=== PATIENT | female | born 1950 | race Hispanic/Latino ===

== ENCOUNTER 2018-03-04 18:41 | Emergency (ER) | payer MEDICARE, MEDICAID ==
[2018-03-04 18:57] VITALS: RESP 18
--- NOTE | 2018-03-04 20:05 | ED PDOC ---
HPI: Seizure Time Seen by Provider: 03/04/18 19:13 Chief Complaint (Nursing): Seizure Chief Complaint (Provider): Seizure History Per: Patient Additional Complaint(s): Pt is a 67 yo female, PMH of HTN, "mini" seizures, presents for feeling weak, having some "balance issues" walking, and an overall feeling of "a possible seizure coming on." Pt reports she has been having "mini" seizures lately but never went into "full " seizures. Pt notes her mini seizures are numbness to the left side of her face, and tingling in her fingers which she can usually control with "hand exercises." Past Medical History Reviewed: Nursing Documentation, Vital Signs Vital Signs: Last Vital Signs Temp 98 F 03/04/18 18:52 Pulse 80 03/04/18 18:52 Resp 18 03/04/18 18:52 BP 128/79 03/04/18 18:52 Pulse Ox 99 03/04/18 18:52 - Medical History PMH: HTN - Surgical History Surgical History: No Surg Hx - Family History Family History: States: No Known Family Hx - Living Arrangements Living Arrangements: With Family - Social History Current smoker - smoking cessation education provided: No Alcohol: None Drugs: Denies - Immunization History Hx Tetanus Toxoid Vaccination: Yes - Allergies Allergies/Adverse Reactions: Allergies Allergy/AdvReac Type Severity Reaction Status Date / Time phenytoin [From Dilantin] Allergy RASH Verified 03/04/18 19:05 Review of Systems ROS Statement: Except As Marked, All Systems Reviewed And Found Negative Neurological: Positive for: Seizures Physical Exam - Reviewed Nursing Documentation Reviewed: Yes Vital Signs Reviewed: Yes - Physical Exam Appears: Positive for: Well, Non-toxic, No Acute Distress Head Exam: Positive for: ATRAUMATIC, NORMAL INSPECTION, NORMOCEPHALIC Skin: Positive for: Normal Color, Warm, DRY Eye Exam: Positive for: EOMI, Normal appearance, PERRL ENT: Positive for: Normal ENT Inspection Neck: Positive for: Normal, Painless ROM Cardiovascular/Chest: Positive for: Regular Rate, Rhythm Respiratory: Positive for: CNT, Normal Breath Sounds Gastrointestinal/Abdominal: Positive for: Normal Exam, Soft Back: Positive for: Normal Inspection Extremity: Positive for: Normal ROM Neurologic/Psych: Positive for: Alert, Oriented - ECG O2 Sat by Pulse Oximetry: 99 Medical Decision Making Medical Decision Making: IV access established and diagnostics ordered. Case endorsed to CLARA Frederick at 2000 pending diagnostic review and re-eval Disposition - Clinical Impression Clinical Impression: Weakness - Patient ED Disposition Is Patient to be Admitted: Transfer of Care - Disposition Disposition: Transfer of Care Disposition Time: 20:07 Condition: STABLE Instructions: Weakness (ED)
[2018-03-04 21:05] LABS: BASO % 0.4 % (0.0-2.0); EOS # 0.2 K/uL (0.0-0.7); EOS % 2.6 % (0.0-4.0); HEMOGLOBIN 13.2 g/dL (12.0-16.0); LYMPH # 2.8 K/uL (1.0-4.3); LYMPH % 39.9 % (20.0-40.0); MEAN CELL VOLUME 89.6 fl (81.0-99.0); MEAN CORPUSCULAR HEMOGLOBIN 30.8 pg (27.0-31.0); MEAN CORPUSCULAR HGB CONC 34.4 g/dL (33.0-37.0); MEAN PLATELET VOLUME 7.4 fl (7.2-11.7); MONO # 0.7 K/uL (0.0-0.8); MONO % 9.9 % (0.0-10.0); NEUT # 3.3 K/uL (1.8-7.0); NEUT % 47.2 % (50.0-75.0); NRBC % 0.1 % (0.0-0.0); RBC 4.27 Mil/uL (3.80-5.20); RED CELL DISTRIBUTION WIDTH 12.6 % (11.5-14.5)
[2018-03-04 21:15] LABS: ALB/GLOB RATIO 1.4 (1.0-2.1); ALBUMIN 4.3 g/dL (3.5-5.0); ALT/SGPT 31 U/L (9-52); AST/SGOT 26 U/L (14-36); BLOOD UREA NITROGEN 15 mg/dl (7-17); CALCIUM 9.7 mg/dL (8.4-10.2); GFR NON-AFRICAN AMERICAN > 60
[2018-03-04 23:23] LABS: URINE BILIRUBIN NEGATIVE (NEGATIVE); URINE BLOOD NEGATIVE (NEGATIVE); URINE CLARITY CLEAR (Clear); URINE COLOR YELLOW (YELLOW); URINE GLUCOSE (UA) NEG (Normal); URINE LEUKOCYTE ESTERASE SMALL Leu/uL (Negative); URINE PROTEIN NEGATIVE (NEGATIVE); URINE UROBILINOGEN 0.2-1.0 mg/dL (0.2-1.0)
--- NOTE | 2018-03-05 00:14 | ED PDOC ---
- Laboratory Results Result Diagrams: 03/04/18 20:52 03/04/18 20:52 - ECG O2 Sat by Pulse Oximetry: 99 Medical Decision Making Medical Decision Making: Case endorsed to me from GAIL Rizo at [address], observation in the ER and re-evaluation. Labs reviewed and wnl. CT head : FINDINGS: Brain: Area of old right middle cerebral artery infarct extending into the anterior watershed and across the inferior aspect of the right frontal lobe. There is minimal patchy low attenuation of deep white matter. There is slight prominence of the peripheral sulci. Ventricles: There is mild prominence of the central ventricular system. Bones/joints: Normal. No acute fracture. Sinuses: Normal as visualized. No acute sinusitis. Mastoid air cells: Normal as visualized. No mastoid effusion. Soft tissues: Normal. IMPRESSION: 1. Minimal chronic ischemic white matter change mild atrophy. 2. Encephalomalacia involving the inferior right frontal lobe and portions of the anterior right temporal lobe and lateral right parietal lobe which may be posttraumatic. 3. Otherwise negative noncontrast head CT. Dictated and Authenticated by: Epi Simmons MD 0000 On re-evaluation, patient reports having 1 mini seizure while in the ER. On further questioning, patient reports she is on keppra 750 mg 2 po bid and carbamezapine 200 mg po tid, which she missed taking both medications x2 days as she forgot them in [facility] where she was staying for a few days. She states she has someone who is returning to [place] tomorrow AM to retrieve her medications for her. She states when she takes both medications her seizures are well controlled and only has a few episodes of mini seizures a month. Denies any headache, dizziness, chest pain, SOB. On exam, patient remains AAOx3 , in no acute distress. Lungs clear to auscultation, cardiac RRR, abdomen soft, non-tender, repeat neuro exam shows no focal findings. Diagnostic results d/w the patient in great detail. Patient given keppra PO and carbamezapine PO. 0100 EKG : NSR at 61 bpm, +T wave depressions in leads V3-V5, as read by GAIL. Today's EKG was compared to her last EKG on 06/07/2014, which reveals that these are new changed. Lab called and troponin added. 0200 Troponin (-). Patient still denies any dizziness, CP, SOB, and has no other complaints. VS T 98 P 72 BP 132/80 O2sat 100%RA R 18. Based on history, exam and diagnostic results, plan will be for outpatient follow up. Patient instructed to follow-up with her pmd regarding her ekg and neurologist Dr. Simi Bueno in 1-2 days without fail. Advised to resume her anti-sezire medications in the AM. Return to the emergency room at any time for any new or worsening symptoms. Patient states she fully agrees with and understands discharge instructions. States that she agrees with the plan and disposition. Verbalized and repeated discharge instructions and plan. I have given the patient opportunity to ask any additional questions. Disposition - Clinical Impression Clinical Impression: Weakness, Seizure disorder - POA Present On Arrival: None - Disposition Disposition: Routine/Home Disposition Time: 02:00 Condition: STABLE Additional Instructions: Thank you for letting us take care of you today. You were treated for weakness and seizure. The emergency medical care you received today was directed towards the acute presenting symptoms. Resume taking your anti-seizure medication. Return to the Emergency Department at any time if symptoms worsen, do not improve, or if any other problems arise. Please contact your neurologist doctor in 2 days for re-evaluation and follow up. Bring any paperwork you were given at discharge with you along with any medications to your follow up visit. Our treatment cannot replace ongoing medical care by a primary care provider (PCP) outside of the emergency department. Thank you for allowing the [facility] team to be part of your care today. Instructions: Seizures, Adult (DC), Weakness (ED) Forms: [employer] (Greek) - PA / PARTS SPECIALIST / Resident Statement MD/DO has reviewed & agrees with the documentation as recorded.
[2018-03-05 02:34] VITALS: BP 132/80; PULSE 72; TEMP 98.4
[2018-03-05 03:25] VITALS: O2SAT 99
--- NOTE | 2018-03-05 07:53 | RAD ---
Date of service: 03/04/2018 PROCEDURE: CHEST RADIOGRAPH, 1 VIEW HISTORY: med screening COMPARISON: Chest radiographs 03/28/2013. FINDINGS: LUNGS: No acute pulmonary disease appreciated bilaterally. PLEURA: No pneumothorax or pleural fluid seen. CARDIOVASCULAR: Normal. OSSEOUS STRUCTURES: No significant abnormalities. VISUALIZED UPPER ABDOMEN: Normal. OTHER FINDINGS: None. IMPRESSION: No interval acute cardiopulmonary disease appreciated.
--- NOTE | 2018-03-05 10:29 | CT ---
Date of service: 03/04/2018 PROCEDURE: CT HEAD WITHOUT CONTRAST. HISTORY: dizzy, loss of balance COMPARISON: Head CT without contrast 06/08/2014. TECHNIQUE: Axial computed tomography images were obtained through the head/brain without intravenous contrast. Radiation dose: Total exam DLP = 753.91 mGy-cm. This CT exam was performed using one or more of the following dose reduction techniques: Automated exposure control, adjustment of the mA and/or kV according to patient size, and/or use of iterative reconstruction technique. FINDINGS: HEMORRHAGE: No intracranial hemorrhage. BRAIN: A large area cystic encephalomalacia is identified at the mid to inferior right middle cerebral artery distribution compatible with chronic infarct, stable in appearance in the interval. No positive mass effect above or below the tentorium and mild diffuse cerebral atrophy and chronic microangiopathy are reiterated throughout the remaining cerebrum. No suspicious extra-axial collection. No midline brain abnormality appreciable grossly. VENTRICLES: Unremarkable. No hydrocephalus. CALVARIUM: Unremarkable. PARANASAL SINUSES: Unremarkable as visualized. No significant inflammatory changes. MASTOID AIR CELLS: Unremarkable as visualized. No inflammatory changes. OTHER FINDINGS: None. IMPRESSION: Chronic large right MCA infarct reiterated as well as limited age-related neuro degenerative findings. No definite acute intracranial findings by standard CT criteria. Follow-up CT or MRI are available as indicated. Concordant preliminary report from [facility], 03/04/2018.
--- NOTE | 2018-03-05 17:45 | CARD ---
APPROVED REPORT Date of service: 03/04/2018 EKG Measurement Heart [id number] <Conclusion> Normal sinus rhythm Cannot rule out Inferior infarct, age undetermined Anterior infarct, age undetermined ST & T wave abnormality, consider lateral ischemia Abnormal ECG
== END 2018-03-05 02:10 | disposition home or self-care (01) ==
LOC: H.ER 18:41
DX: G40.909 Epilepsy, unspecified, not intractable, without status epilepticus (principal); R53.1 Weakness; I10 Essential (primary) hypertension

== ENCOUNTER 2018-03-09 14:17 | Observation (INO) | payer MEDICARE, MEDICAID ==
[2018-03-09 14:26] VITALS: BMI 28.3
[2018-03-09] MEDS ORDERED: Lidocaine 1% Inj (20ml) IJ ONE (14:44)
[2018-03-09] MEDS ORDERED: Tdap Vaccine 0.5 ml Vial (10-64 yrs) IM ONE ×2 (14:45→14:53)
[2018-03-09] MEDS ORDERED: Lidocaine 1% w Epi 1:100,000 Inj ONE (14:49)
--- NOTE | 2018-03-09 15:03 | ED PDOC ---
HPI: Trauma/Fall - HPI Time Seen by Provider: 03/09/18 14:37 Chief Complaint (Nursing): Trauma Chief Complaint (Provider): Trauma History Per: Patient History/Exam Limitations: no limitations Onset/Duration Of Symptoms: Mins (prior to arrival) Additional Complaint(s): 67 year old female presents to the ED for evaluation of a lip laceration and nasal injury s/p falling. Patient states that prior to arrival, she tripped while walking into a [employer], causing her to strike her face against the ground. She reports having left sided epistaxis initially, which has since resolved, along with nasal pain, and a frontal headache described as a a dull pressure feeling. Patient denies taking anticoagulants or taking medications before arriving. Of note, patient was recently evaluated in the ED for dizziness , but had an unremarkable workup, and subsequently denies any dizziness at the time of the fall. Otherwise, (-) other complaints, (-) chest pain, (-) shortness of breath, (-) abdominal pain, (-) nausea, (-) vomiting, (-) loss of consciousness (-) visual changes. Tetanus not up to date. PMD: Sunshine Coleman Past Medical History Reviewed: Historical Data, Nursing Documentation, Vital Signs Vital Signs: Last Vital Signs Temp 98.4 F 03/09/18 14:25 Pulse 77 03/09/18 14:25 Resp 16 03/09/18 14:25 BP 136/89 03/09/18 14:25 Pulse Ox 95 03/09/18 14:25 - Medical History PMH: HTN, Chronic Pain (knees) Other PMH: thyroid condition - Surgical History Surgical History: No Surg Hx - Family History Family History: States: Unknown Family Hx - Social History Current smoker - smoking cessation education provided: No Alcohol: None Drugs: Denies - Home Medications Home Medications: Ambulatory Orders Medication Instructions Recorded Alendronate [Fosamax] 70 mg PO WE 03/09/18 Aspirin [Ecotrin] 81 mg PO DAILY 03/09/18 Carbamazepine [Carbatrol] 200 mg PO Q8 03/09/18 Levetiracetam [Keppra] 1,500 mg PO Q12 03/09/18 Levothyroxine [Synthroid] 88 mcg PO DAILY 03/09/18 Pravastatin Sodium [Pravachol] 40 mg PO HS 03/09/18 - Allergies Allergies/Adverse Reactions: Allergies Allergy/AdvReac Type Severity Reaction Status Date / Time phenytoin [From Dilantin] Allergy RASH Verified 03/09/18 14:24 Review of Systems ROS Statement: Except As Marked, All Systems Reviewed And Found Negative ENT: Positive for: Nose Pain (mild), Mouth Pain (lip laceration), 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 Negative for: Dizziness, Other (loss of consciousness) Physical Exam - Reviewed Nursing Documentation Reviewed: Yes Vital Signs Reviewed: Yes - Physical Exam Comments: GENERAL APPEARANCE: Patient is awake, alert, oriented x 3, in no acute distress. Resting comfortably. SKIN: Warm, dry; (-) cyanosis. HEAD: (-) swelling and tenderness, with no palpable bony defect. EYES: PERRL. (-) conjunctival pallor, (-) scleral icterus, (-) nystagmus. (-) periorbital tenderness or edema. ENMT: Mucous membranes moist. Nose: (+) Mild nasal tenderness with a faint 2mm abrasion to nasal bridge, (+) mild swelling, (-) ecchymosis. Pharynx clear, uvula midline. Airway patent: (-) stridor. Full ROM of mandible without pain, dentition intact and nontender. Right upper lip: .75cm linear, superficial laceration through jamil border with central puncture wound, (+) active bleeding, (+) mild surrounding ecchymosis. Interior, midline upper lip: (+) 1cm gaping laceration (-) active bleeding (+) mild surrounding ecchymosis NECK: Supple, FROM (-) paracervical tenderness, (-) vertebral tenderness, (-) lymphadenopathy. CHEST AND RESPIRATORY: (-) chest wall tenderness. Lungs: (-) rales, (-) rhonchi , (-) wheezes; breath sounds equal bilaterally. Respirations even and nonlabored , speaking in full sentences. HEART AND CARDIOVASCULAR: (-) irregularity; (-) murmur ABDOMEN AND GI: Soft; (-) tenderness (-) guarding (-) rebound. BACK: (-) midline tenderness. EXTREMITIES: (-) deformity NEURO AND PSYCH: GCS=15. Mental status as above. Has full memory of episode; rn hemo dialysis : Pupils equal & reactive . EOMs intact and painless. (-) facial asymmetry. Tongue and uvula midline. Strength 5/5 in all extremities. No gross sensory deficits. Gait steady. - Laboratory Results Result Diagrams: 03/09/18 16:26 03/09/18 16:26 - ECG O2 Sat by Pulse Oximetry: 95 (RA) Pulse Ox Interpretation: Normal Medical Decision Making Medical Decision Making: Time: 1444 Initial Impression: Closed head injury, lip laceration, nasal contusion s/p fall Initial Plan: --CT head w/o contrast --CT maxillofacial w/o contrast --Tetanus IM --Lido 1% with epi for laceration repair --Tylenol 650 mg PO 1505 Laceration repair performed by Jayesh ELIZABETH. Patient tolerated procedure well. See procedure notes. [address] Head FINDINGS: HEMORRHAGE: Trace subarachnoid hemorrhage is seen at the right frontal vertex medially abutting the falx. Small subdural hematoma not completely excluded but not favored. No additional intracranial hemorrhage appreciable. BRAIN: Reiteration of large right MCA chronic infarct. Corticomedullary differentiation remains good throughout. Proportional, diffuse cerebral atrophy and chronic microangiopathy are reiterated. No interval mass effect is identified or suspicious extra-axial fluid collection in the midline brain and appears diffusely unremarkable nevertheless. Posterior fossa contents remain unremarkable including the brainstem. VENTRICLES: Unremarkable. No hydrocephalus. CALVARIUM: No destructive bony lesion or displaced fracture identified including through the skullbase. PARANASAL SINUSES: Unremarkable as visualized. No significant inflammatory changes. MASTOID AIR CELLS: Unremarkable as visualized. No inflammatory changes. OTHER FINDINGS: None. IMPRESSION: Trace subarachnoid hemorrhage is seen acutely at the medial right frontal vertex. Trace adjacent subdural hematoma not favored but not completely excluded. Exam is otherwise unchanged including large right MCA chronic infarct an age related neuro degenerative findings. No displaced fracture identified. CT maxillofacial FINDINGS: NASAL BONES: Rightward bony nasal septal deviation. No fracture identified. ORBITS: No fracture identified. Oral contents appear intact grossly. PARANASAL SINUSES/ MASTOIDS: Clear. MAXILLA: Unremarkable. MANDIBLE/ TEMPOROMANDIBULAR JOINTS: Unremarkable. SKULL BASE: Unremarkable. TEMPORAL BONES: Middle ears and mastoid grossly unremarkable. OTHER FINDINGS: None. IMPRESSION: No fracture identified throughout the facial bones. Rightward bony nasal septal deviation is identified. IV access, CMP, CBC with differential, PT, and PTT ordered secondary to CT findings. 1605 Case discussed with ED physician Malcolm who recommends neurosurgery consult and admission. Consult placed to neurosurgery. 164 Spoke to neurosurgery senior science consultant, Dr. Whalen, who recommends repeat CT in 4-6 hours. Consult placed to family practice resident for admission. Will go under observation on telemetry. Repeat CT ordered for 9pm. 164 Repeat O2: 97% on RA Spoke to family practice resident Stacy Green who is agreeable to admission. Will see patient in ED. CBC, CMP, and coags unremarkable. On re-evaluation, patient offers no additional complaints. Patient remains AAOx3 , in no acute distress. On exam, neck is supple, lungs CTA, cardiac RRR, abdomen is soft and non-tender, neuro exam shows no focal findings. Diagnostic results d/w the patient in great detail. Dx of lip laceration, head injury, subarachnoid hemorrhage s/p fall d/w the patient. Based on history, exam and diagnostic results plan will be for obs admission. Scribe Attestation: Documented by Pearl De La Cruz, acting as a scribe for Alena Mcconnell PA-C. Provider Scribe Attestation: All medical record entries made by the Scribe were at my direction and personally dictated by me. I have reviewed the chart and agree that the record accurately reflects my personal performance of the history, physical exam, medical decision making, and the department course for this patient. I have also personally directed, reviewed, and agree with the discharge instructions and disposition. Procedures - Time-Out Type of Procedure: Suture Site of Procedure: Lip Correct Patient (with visual ID + MR# on ID Band): Yes Correct Procedure: Yes Correct Site Marked: Yes Medication Reconciliation / Bloodwork / Allergies Checked: Yes PA/Tech: Alena Mcconnell PA-C - Laceration/Wound Repair Right Upper Lip Wound Length (cm): 0.75 Wound's Depth, Shape: superficial Wound Explored: no foreign body removed Irrigated w/ Saline (ccs): 100 Anesthesia: Lidocaine w/ Epi Volume Anesthetic (ccs): 1 Wound Repaired With: Sutures Suture Size/Type: 6:0 (monocryl) Number of Sutures: 1 Layer Closure?: No Wound Complexity: Simple Sterile Dressing Applied?: Yes Progress: Patient tolerated procedure well. Bacitracin and band-aid applied. Patient educated on further wound care. All questions answered at this time. Interior Upper Lip Wound Length (cm): 1 Wound Explored: no foreign body removed Irrigated w/ Saline (ccs): 100 Anesthesia: Lidocaine w/ Epi Volume Anesthetic (ccs): 1 Wound Debrided: minimal Wound Repaired With: Sutures Suture Size/Type: 6:0 (monocryl) Number of Sutures: 4 Layer Closure?: No Wound Complexity: Simple Sterile Dressing Applied?: Yes Progress: Patient tolerated procedure well and was educated on further wound care. Salt water gargles encouraged. Disposition - Clinical Impression Clinical Impression: Lip laceration, Nasal contusion, Subarachnoid hemorrhage - Patient ED Disposition Is Patient to be Admitted: Yes Counseled Patient/Family Regarding: Studies Performed, Diagnosis - Disposition Disposition Time: 16:49 Condition: STABLE - Pt Status Changed To: Hospital Disposition Of: Observation - POA Present On Arrival: Falls Or Trauma Results - Lab Results Lab Results: 03/09/18 03/09/18 03/09/18 16:26 16:26 16:26 WBC 9.1 RBC 4.54 Hgb 14.0 Hct 40.9 MCV 89.9 MCH 30.9 MCHC 34.3 RDW 12.9 Plt Count 221 MPV 7.5 Neut % (Auto) 69.3 Lymph % (Auto) 22.4 [place] % (Auto) 6.9 Eos % (Auto) 1.0 Baso % (Auto) 0.4 Neut # (Auto) 6.3 Lymph # (Auto) 2.0 [place] # (Auto) 0.6 Eos # (Auto) 0.1 Baso # (Auto) 0.0 PT 12.0 INR 1.1 APTT 33.0 Sodium 138 Potassium 3.4 L Chloride 101 Carbon Dioxide 29 Anion Gap 11 BUN 8 Creatinine 0.6 L Est GFR ( Amer) > 60 Est GFR (Non-Af Amer) > 60 Random Glucose 100 Calcium 9.3 Total Bilirubin 0.6 AST 21 ALT 30 Alkaline Phosphatase 79 Total Protein 7.4 Albumin 4.3 Globulin 3.1 Albumin/Globulin Ratio 1.4
--- NOTE | 2018-03-09 16:01 | CT ---
Date of service: 03/09/2018 PROCEDURE: CT HEAD WITHOUT CONTRAST. HISTORY: s/p fall COMPARISON: Noncontrast head CT 03/04/2018. TECHNIQUE: Axial computed tomography images were obtained through the head/brain without intravenous contrast. Radiation dose: Total exam DLP = 741.16 mGy-cm. This CT exam was performed using one or more of the following dose reduction techniques: Automated exposure control, adjustment of the mA and/or kV according to patient size, and/or use of iterative reconstruction technique. FINDINGS: HEMORRHAGE: Trace subarachnoid hemorrhage is seen at the right frontal vertex medially abutting the falx. Small subdural hematoma not completely excluded but not favored. No additional intracranial hemorrhage appreciable. BRAIN: Reiteration of large right MCA chronic infarct. Corticomedullary differentiation remains good throughout. Proportional, diffuse cerebral atrophy and chronic microangiopathy are reiterated. No interval mass effect is identified or suspicious extra-axial fluid collection in the midline brain and appears diffusely unremarkable nevertheless. Posterior fossa contents remain unremarkable including the brainstem. VENTRICLES: Unremarkable. No hydrocephalus. CALVARIUM: No destructive bony lesion or displaced fracture identified including through the skullbase. PARANASAL SINUSES: Unremarkable as visualized. No significant inflammatory changes. MASTOID AIR CELLS: Unremarkable as visualized. No inflammatory changes. OTHER FINDINGS: None. IMPRESSION: Trace subarachnoid hemorrhage is seen acutely at the medial right frontal vertex. Trace adjacent subdural hematoma not favored but not completely excluded. Exam is otherwise unchanged including large right MCA chronic infarct an age related neuro degenerative findings. No displaced fracture identified. Findings discussed with GAIL Mcconnell with written down and read back verification 03/09/2018 3:57 p.m..
--- NOTE | 2018-03-09 16:05 | CT ---
Date of service: 03/09/2018 PROCEDURE: CT MAXILLOFACIAL BONES WITHOUT CONTRAST HISTORY: s/p fall COMPARISON: None available. TECHNIQUE: Contiguous axial CT images of the maxillofacial bones were obtained. Coronal and sagittal reformats were generated. Radiation dose: Total exam DLP = 797.85 mGy-cm. This CT exam was performed using one or more of the following dose reduction techniques: Automated exposure control, adjustment of the mA and/or kV according to patient size, and/or use of iterative reconstruction technique. FINDINGS: NASAL BONES: Rightward bony nasal septal deviation. No fracture identified. ORBITS: No fracture identified. Oral contents appear intact grossly. PARANASAL SINUSES/ MASTOIDS: Clear. MAXILLA: Unremarkable. MANDIBLE/ TEMPOROMANDIBULAR JOINTS: Unremarkable. SKULL BASE: Unremarkable. TEMPORAL BONES: Middle ears and mastoid grossly unremarkable. OTHER FINDINGS: None. IMPRESSION: No fracture identified throughout the facial bones. Rightward bony nasal septal deviation is identified. .
[2018-03-09 16:33] LABS: BASO % 0.4 % (0.0-2.0); EOS # 0.1 K/uL (0.0-0.7); LYMPH % 22.4 % (20.0-40.0); MEAN CELL VOLUME 89.9 fl (81.0-99.0); MEAN CORPUSCULAR HEMOGLOBIN 30.9 pg (27.0-31.0); MEAN CORPUSCULAR HGB CONC 34.3 g/dL (33.0-37.0); MEAN PLATELET VOLUME 7.5 fl (7.2-11.7); MONO # 0.6 K/uL (0.0-0.8); MONO % 6.9 % (0.0-10.0); NEUT # 6.3 K/uL (1.8-7.0); NEUT % 69.3 % (50.0-75.0); RBC 4.54 Mil/uL (3.80-5.20); RED CELL DISTRIBUTION WIDTH 12.9 % (11.5-14.5); WHITE BLOOD COUNT 9.1 K/uL (4.8-10.8)
[2018-03-09 16:35] LABS: INR 1.1
[2018-03-09 17:19] LABS: ALB/GLOB RATIO 1.4 (1.0-2.1); ALBUMIN 4.3 g/dL (3.5-5.0); ALT/SGPT 30 U/L (9-52); AST/SGOT 21 U/L (14-36); BLOOD UREA NITROGEN 8 mg/dl (7-17); CALCIUM 9.3 mg/dL (8.4-10.2); GFR AFRICAN-AMERICAN > 60; GFR NON-AFRICAN AMERICAN > 60
[2018-03-09] MEDS ORDERED: Sodium Chloride 0.9% 1,000 ML IV SCH (19:00)
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
[2018-03-09] MEDS ORDERED: LEVETIRACETAM 1500 MG PO SCH (21:00)
[2018-03-09] MEDS ORDERED: Pravastatin Sodium 40 MG TAB PO SCH (22:00)
--- NOTE | 2018-03-10 07:21 | CT ---
Date of service: 03/09/2018 PROCEDURE: CT HEAD WITHOUT CONTRAST. HISTORY: subarachnoid hemorrhage COMPARISON: 03/09/2018 TECHNIQUE: Axial computed tomography images were obtained through the head/brain without intravenous contrast. Radiation dose: Total exam DLP = mGy-cm. This CT exam was performed using one or more of the following dose reduction techniques: Automated exposure control, adjustment of the mA and/or kV according to patient size, and/or use of iterative reconstruction technique. FINDINGS: HEMORRHAGE: Re- demonstration of minimal within the right frontal subarachnoid hemorrhage BRAIN: No mass effect or edema. Old right middle cerebral artery distribution infarct. VENTRICLES: Unremarkable. No hydrocephalus. CALVARIUM: Unremarkable. PARANASAL SINUSES: Unremarkable as visualized. No significant inflammatory changes. MASTOID AIR CELLS: Unremarkable as visualized. No inflammatory changes. OTHER FINDINGS: None. IMPRESSION: No change
[2018-03-10] MEDS ORDERED: Levothyroxine 88 MCG TAB PO SCH (09:00)
--- NOTE | 2018-03-10 09:23 | CP.PCM.DIS ---
Provider - Provider Date of Admission: 03/09/18 16:49 Attending physician: Sunshine Coleman MD Primary care physician: Dr. Coleman Consults: Dr. Whalen-neurosurgery Time Spent in preparation of Discharge (in minutes): 30 Diagnosis - Discharge Diagnosis (1) Subarachnoid hemorrhage Status: Acute Priority: Low (2) Nasal contusion Status: Acute Priority: Low (3) Lip laceration Status: Acute Priority: Low Hospital Course - Lab Results Lab Results: Most Recent Lab Values WBC 9.1 K/uL (4.8-10.8) 03/09/18 16:26 RBC 4.54 Mil/uL (3.80-5.20) 03/09/18 16:26 Hgb 14.0 g/dL (12.0-16.0) 03/09/18 16:26 Hct 40.9 % (34.0-47.0) 03/09/18 16:26 MCV 89.9 fl (81.0-99.0) 03/09/18 16:26 MCH 30.9 pg (27.0-31.0) 03/09/18 16:26 MCHC 34.3 g/dL (33.0-37.0) 03/09/18 16:26 RDW 12.9 % (11.5-14.5) 03/09/18 16:26 Plt Count 221 K/uL (130-400) 03/09/18 16:26 MPV 7.5 fl (7.2-11.7) 03/09/18 16:26 Neut % (Auto) 69.3 % (50.0-75.0) 03/09/18 16:26 Lymph % (Auto) 22.4 % (20.0-40.0) 03/09/18 16:26 [place] % (Auto) 6.9 % (0.0-10.0) 03/09/18 16:26 Eos % (Auto) 1.0 % (0.0-4.0) 03/09/18 16:26 Baso % (Auto) 0.4 % (0.0-2.0) 03/09/18 16:26 Neut # (Auto) 6.3 K/uL (1.8-7.0) 03/09/18 16:26 Lymph # (Auto) 2.0 K/uL (1.0-4.3) 03/09/18 16:26 [place] # (Auto) 0.6 K/uL (0.0-0.8) 03/09/18 16:26 Eos # (Auto) 0.1 K/uL (0.0-0.7) 03/09/18 16:26 Baso # (Auto) 0.0 K/uL (0.0-0.2) 03/09/18 16:26 PT 12.0 Seconds (9.8-13.1) 03/09/18 16:26 INR 1.1 03/09/18 16:26 APTT 33.0 Seconds (25.6-37.1) 03/09/18 16:26 Sodium 138 mmol/l (132-148) 03/09/18 16:26 Potassium 3.4 MMOL/L (3.6-5.0) L 03/09/18 16:26 Chloride 101 mmol/L (98-107) 03/09/18 16:26 Carbon Dioxide 29 mmol/L (22-30) 03/09/18 16:26 Anion Gap 11 (10-20) 03/09/18 16:26 BUN 8 mg/dl (7-17) 03/09/18 16:26 Creatinine 0.6 mg/dl (0.7-1.2) L 03/09/18 16:26 Est GFR ( Amer) > 60 03/09/18 16:26 Est GFR (Non-Af Amer) > 60 03/09/18 16:26 POC Glucose (mg/dL) 89 mg/dL (65-110) 03/10/18 05:10 Random Glucose 100 mg/dL (65-105) 03/09/18 16:26 Calcium 9.3 mg/dL (8.4-10.2) 03/09/18 16:26 Total Bilirubin 0.6 mg/dl (0.2-1.3) 03/09/18 16:26 AST 21 U/L (14-36) 03/09/18 16:26 ALT 30 U/L (9-52) 03/09/18 16:26 Alkaline Phosphatase 79 U/L (38-126) 03/09/18 16:26 Total Protein 7.4 G/DL (6.3-8.2) 03/09/18 16:26 Albumin 4.3 g/dL (3.5-5.0) 03/09/18 16:26 Globulin 3.1 gm/dL (2.2-3.9) 03/09/18 16:26 Albumin/Globulin Ratio 1.4 (1.0-2.1) 03/09/18 16:26 - Hospital Course Hospital Course: 67 yr old F admitted for trace subarachnoid hemorrhage seen on CT head s/p mechanical fall, s/p lip laceration repair. Neurosurgery was consulted, repeat CT head revealed similar findings to initial CT done at time of ED evaluation. During her hospitalization, patients neurological exams were normal, she tolerated PO liquids and solids, ambulated without difficulty and had normal urine output. She had mild hypokalemia of 3.4 and was given KCL 40meq PO once and an order for outpatient bloodwork to be completed prior to appointment with her PMD. Patient was discharged with instructions to resume home medications, have blood work as ordered a few days before PM appointment, follow up with her PMD within 1 week, follow up with her neurologist within 1 week, ER precautions were reviewed. Home medications to be resumed: -Levothyroxine 88 mcg PO QD -Pravastatin 40 mg PO QHS -Aspirin 81 mg PO QD -Alendronate 70mg PO 1 tab once per week -Carbamazepine 200mg PO Q8 (called and confirmed-2 refills left at pharmacy: filled by NeuroKatherine Bueno) -Levetiracetam 1,500 mg PO Q12 (called and confirmed-2 refills left at pharmacy : filled by NeuroKatherine Bueno) - Date & Time of H&P Date of H&P: 03/09/18 Time of H&P: 19:10 Discharge Exam - Head Exam Head Exam: NORMOCEPHALIC - Eye Exam Eye Exam: EOMI, PERRL - ENT Exam ENT Exam: Mucous Membranes Dry. absent: Normal Oropharynx (right upper lip swelling with 1 suture placed, no active bleeding; mid right interior lip with [address], no active bleeding) - Neck Exam Neck exam: Full Rom - Respiratory Exam Respiratory Exam: Clear to PA & Lateral, NORMAL BREATHING PATTERN. absent: Rhonchi - Cardiovascular Exam Cardiovascular Exam: REGULAR RHYTHM, +S1, +S2 - GI/Abdominal Exam GI & Abdominal Exam: Normal Bowel Sounds, Soft. absent: Tenderness - Extremities Exam Extremities exam: full ROM, normal capillary refill, pedal pulses present - Neurological Exam Neurological exam: Alert, CN II-XII Intact, Normal Gait, Oriented x3 - Skin Skin Exam: Dry, Warm Discharge Plan - Discharge Medications Prescriptions: Alendronate [Fosamax] 70 mg PO WE #4 tab Levothyroxine [Synthroid] 88 mcg PO DAILY #30 tab Pravastatin Sodium [Pravachol] 40 mg PO HS #30 tab - Follow Up Plan Condition: GOOD Disposition: HOME/ ROUTINE Patient education suggested?: Yes Instructions: Laceration Repair With Stitches (DC), Wound Care (DC), Subarachnoid Hemorrhage (DC) Additional Instructions: -Resume home medications -Tylenol 650mg PO Q6 PRN pain/headache -Have blood work as ordered a few days before PMD appointment -Follow up with your PMD within 1 week: monday03/20/[address] Coleman -Follow up with her neurologist within 1 week -ER precautions were reviewed including (weakness, dizziness, persistent headaches, visual changes, nausea or vomiting, confusion) Referrals: Sunshine Coleman MD [Staff Provider] - Luis Bueno MD [Staff Provider] -
[2018-03-10] MEDS ORDERED: Potassium Chloride 20 mEq ER Tab PO ONE (10:43)
[2018-03-10 12:50] VITALS: O2SAT 99
[2018-03-10 15:56] VITALS: BP 111/58; PULSE 67; RESP 18; TEMP 97.4
[2018-03-14] MEDS ORDERED: ALENDRONATE 70 MG TAB PO SCH (18:37)
== END 2018-03-10 18:38 | disposition home or self-care (01) ==
LOC: H.ER 14:17 → H.ERHOLD 16:49 → H.TEL 20:43
PROVIDERS: ADMIT Family Medicine; ATTEND Family Medicine
DX: S06.6X0A Traumatic subarachnoid hemorrhage without loss of consciousness, initial encounter (principal); E03.9 Hypothyroidism, unspecified; E78.5 Hyperlipidemia, unspecified; J34.2 Deviated nasal septum; S00.33XA Contusion of nose, initial encounter; S01.511A Laceration without foreign body of lip, initial encounter; W01.0XXA Fall on same level from slipping, tripping and stumbling without subsequent striking against object, initial encounter; Y93.01 Activity, walking, marching and hiking; I10 Essential (primary) hypertension; G89.29 Other chronic pain; Z23 Encounter for immunization; R04.0 Epistaxis; E87.6 Hypokalemia
CPT/HCPCS: 12011; 70450; 70486; 80053; 82948; 85025; 85610; 85730; 90471; 90715; 99285; G0378

== ENCOUNTER 2018-03-20 21:32 | Emergency (ER) | payer MEDICARE, MEDICAID ==
[2018-03-20 21:32] VITALS: BMI 28.3
[2018-03-20 21:49] VITALS: BP 128/84; PULSE 94; RESP 16; TEMP 97.7; O2SAT 96
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
--- NOTE | 2018-03-21 16:12 | RAD ---
Date of service: 03/20/2018 PROCEDURE: Right Knee Radiographs. HISTORY: s/p fall 3 weeks ago COMPARISON: 03/16/2016 FINDINGS: BONES: No fracture appreciated Spurring and other osseous active hypertrophic changes present. Central tibial plateau subchondral coalescence cystic arthropathic changes. JOINTS: Osteoarthrosis JOINT EFFUSION: None. OTHER FINDINGS: None. IMPRESSION: Multi compartmental osteoarthrosis. Medial femoral tibial and patellofemoral compartments most notably affected. Not significantly changed since 2015. No interval fracture appreciated
== END 2018-03-20 23:32 | disposition home or self-care (01) ==
LOC: H.ER 21:32
DX: M25.561 Pain in right knee (principal); G89.29 Other chronic pain; M19.90 Unspecified osteoarthritis, unspecified site; I10 Essential (primary) hypertension; Z79.82 Long term (current) use of aspirin; E78.00 Pure hypercholesterolemia, unspecified; E03.9 Hypothyroidism, unspecified